=== PATIENT | male | born 1985 | race Caucasian/White ===

== ENCOUNTER 2020-06-19 05:10 | Emergency (ER) | payer OTHER ==
[~2020-06-19] VITALS: Ht 177.8 cm; Wt 86.2 kg
[2020-06-19] MEDS ORDERED: KETO10TA2 PO (09:33)
[2020-06-19] MEDS ORDERED: SKELAXIN800 MG PO (09:33)
== END 2020-06-19 09:37 ==
LOC: ER 05:10
DX: S29.011A Strain of muscle and tendon of front wall of thorax, initial encounter (principal); R07.89 Other chest pain; X50.0XXA Overexertion from strenuous movement or load, initial encounter; Y93.89 Activity, other specified; Y92.89 Other specified places as the place of occurrence of the external cause; Y99.8 Other external cause status